=== PATIENT | female | born 1930 | race Two or more races ===

== ENCOUNTER 2020-09-08 12:37 | Inpatient (IN) | payer OTHER, MEDICAID ==
[~2020-09-08] VITALS: Ht 147.3 cm; Wt 61.2 kg
[2020-09-08 13:43] LABS: Basophils # (auto) 0 10 ^3/uL (0-0.2); Basophils % (auto) 0.4 % (0.0-2.0); Eosinophils # (auto) 0.1 10 ^3/uL (0-0.8); Hematocrit 38.6 % (36.0-46.0); Hemoglobin 12.9 g/dL (12.2-16.2); Lymphocytes # (auto) 1.1 10 ^3/uL (0.4-5.4); Lymphocytes % (auto) 11.6 % (10.0-50.0); Mean Corpuscular Hemoglobin 33.5 pg (28.0-32.0); Mean Corpuscular Hgb Conc. 33.5 g/dL (32.0-36.0); Mean Corpuscular Volume 99.8 fL (80.0-100.0); Monocytes # (auto) 0.6 10 ^3/uL (0-1.3); Monocytes % (auto) 6.1 % (0.0-12.0); Neutrophils # (auto) 7.8 10 ^3/uL (1.6-8.6); Neutrophils % (auto) 80.9 % (37.0-80.0); Platelet Count (auto) 418 10^3/uL (140-450); Red Blood Cells 3.87 10^6/uL (4.0-5.20); White Blood Cell 9.7 10^3/uL (4.4-10.8)
[2020-09-08 14:00] LABS: Albumin 3.6 g/dL (3.4-5.0); Chloride 109 mmol/L (98-107); Sodium 138 mmol/L (136-145)
[2020-09-08 14:07] LABS: Alanine Aminotransferase 48 U/L (13-56); Alkaline Phosphatase 82 U/L (45-117); Anion Gap 7 (5-15); Aspartate Aminotransferase 21 U/L (15-37); BUN/Creatinine Ratio 16.8; Bilirubin, Total 0.8 mg/dL (0.2-1.0); Blood Urea Nitrogen 18 mg/dL (7-18); Calcium 8.4 mg/dL (8.5-10.1); Carbon Dioxide 22 mmol/L (21-32); GFR African American 62 mL/min; GFR Non-African American 51 mL/min; Glucose 119 mg/dL (74-106); Total Protein 7.3 g/dL (6.4-8.2)
[2020-09-08 16:09] LABS: Urine Bacteria FEW /hpf (None Seen); Urine Blood Negative /uL (Negative); Urine Specific Gravity 1.005 (1.001-1.035); Urine WBC 1 /hpf (0 - 5)
[2020-09-08] MEDS ORDERED: cefTRIAXone 1GM/50ML D5W 50 ML IV ONE (17:15)
[2020-09-08] MEDS ORDERED: AZITHROMYCIN 500MG/ 250ML 250 ML IV ONE (17:15)
[2020-09-08] MEDS ORDERED: ASPirin 325 MG TAB PO ONE (17:30)
[2020-09-08] MEDS ORDERED: DEXTROSE (50%) 50ML SYRG IV PRN (19:15)
[2020-09-08] MEDS ORDERED: NITROGLYCERIN 0.4 MG SL TAB SL PRN (19:15)
[2020-09-08] MEDS ORDERED: MORPHINE SULF INJ 2 MG/ML SYRINGE 1ML IV PRN (19:15)
[2020-09-08] MEDS ORDERED: KETOROLAC TROMETH 30 MG/ML 1ML VIAL IV ONE (19:15)
[2020-09-08] MEDS ORDERED: ACETAMINOPHEN 500 MG TAB PO PRN (19:15)
[2020-09-08] MEDS ORDERED: HYDROcodone-ACET 5/325MG TAB PO PRN (19:15)
[2020-09-08] MEDS ORDERED: FUROSEMIDE 20 MG TAB PO ONE (19:15)
[2020-09-08] MEDS ORDERED: DOCUSATE SOD 100 MG CAP PO PRN (19:15)
[2020-09-08] MEDS: ACCU-CHEK COMFORT CURVE STRIP VI SCH (21:24)
[2020-09-08] MEDS: ATORVASTATIN 20 MG TAB PO SCH (21:33)
[2020-09-08] MEDS: METOPROLOL TARTRATE 25 MG TAB PO SCH (21:33)
[2020-09-08] MEDS: InsuLIN REG 1unit/0.01ml Soln (100units/ml) SC SCH (21:33)
[2020-09-09] MEDS: ONDANSETRON HCL 4 MG/2 ML VIAL IV PRN ×2 (03:38→22:15)
[2020-09-09] MEDS: MORPHINE SULF INJ 2 MG/ML SYRINGE 1ML IV PRN ×3 (03:38→17:11)
[2020-09-09] MEDS: InsuLIN REG 1unit/0.01ml Soln (100units/ml) SC SCH ×4 (07:00→22:00)
[2020-09-09] MEDS: ACCU-CHEK COMFORT CURVE STRIP VI SCH ×4 (07:00→22:00)
[2020-09-09 07:32] LABS: Cholesterol 110 mg/dL (< 200); HDL Cholesterol 42 mg/dL (40-59); LDL Cholesterol 62 mg/dL (< 100); Triglycerides 123 mg/dL (< 150)
[2020-09-09] MEDS: cefTRIAXone 1GM/50ML D5W 50 ML IV SCH (09:00)
[2020-09-09] MEDS: AZITHROMYCIN 500MG/ 250ML 250 ML IV SCH (10:00)
[2020-09-09] MEDS: FAMOTIDINE 20 MG TAB PO SCH (10:00)
[2020-09-09] MEDS: ASPirin-EC 81 mg tab PO SCH (10:00)
[2020-09-09] MEDS: METOPROLOL TARTRATE 25 MG TAB PO SCH (10:00)
[2020-09-09] MEDS ORDERED: APIX2.5T PO (13:19)
[2020-09-09] MEDS ORDERED: PRAV20TA3 PO (13:19)
[2020-09-09] MEDS ORDERED: AMLO-483 PO (13:19)
[2020-09-09] MEDS ORDERED: METO-158 PO (13:19)
[2020-09-09] MEDS ORDERED: METH10TA6 PO (13:19)
[2020-09-09] MEDS ORDERED: ASPI-498 PO (13:19)
[2020-09-09] MEDS ORDERED: OMEP-260 PO (13:19)
[2020-09-09] MEDS ORDERED: GABA100C9 PO (13:19)
[2020-09-09] MEDS ORDERED: HYDR500C PO (13:19)
[2020-09-09] MEDS ORDERED: LOSA-39 PO (13:19)
[2020-09-09] MEDS ORDERED: DICL1GEL50 TD (13:22)
[2020-09-09 14:30] LABS: Basophils # (auto) 0 10 ^3/uL (0-0.2); Basophils % (auto) 0.2 % (0.0-2.0); Eosinophils # (auto) 0.1 10 ^3/uL (0-0.8); Eosinophils % (auto) 0.7 % (0.0-7.0); Hematocrit 39.9 % (36.0-46.0); Hemoglobin 12.9 g/dL (12.2-16.2); Lymphocytes # (auto) 1.1 10 ^3/uL (0.4-5.4); Lymphocytes % (auto) 8.9 % (10.0-50.0); Mean Corpuscular Hemoglobin 32.7 pg (28.0-32.0); Mean Corpuscular Hgb Conc. 32.3 g/dL (32.0-36.0); Monocytes # (auto) 0.6 10 ^3/uL (0-1.3); Monocytes % (auto) 5.4 % (0.0-12.0); Neutrophils # (auto) 10.1 10 ^3/uL (1.6-8.6); Neutrophils % (auto) 84.8 % (37.0-80.0); Platelet Count (auto) 381 10^3/uL (140-450); Red Blood Cells 3.95 10^6/uL (4.0-5.20); Red Cell Distribution Width 14.4 % (11.8-14.3); White Blood Cell 11.9 10^3/uL (4.4-10.8)
[2020-09-09 14:52] LABS: BUN/Creatinine Ratio 17.5; Calcium 8.5 mg/dL (8.5-10.1); Magnesium 2.2 mg/dL (1.6-2.6); Potassium 4.3 mmol/L (3.5-5.1)
[2020-09-09] MEDS: LORazepam 2MG/ML-1ML VIAL IV PRN ×2 (15:29→15:31)
[2020-09-09 20:38] LABS: Cholesterol 97 mg/dL (< 200)
[2020-09-09 20:41] LABS: HDL Cholesterol 40 mg/dL (40-59); LDL Cholesterol 51 mg/dL (< 100); Triglycerides 107 mg/dL (< 150)
[2020-09-09 20:46] LABS: Folate (Folic Acid) 21.97 ng/mL (5.38-24)
[2020-09-09] MEDS: ATORVASTATIN 20 MG TAB PO SCH (22:00)
[2020-09-09] MEDS: APIXABAN 2.5 MG TAB PO SCH (22:00)
[2020-09-10] MEDS: MORPHINE SULF INJ 2 MG/ML SYRINGE 1ML IV PRN ×2 (00:28→05:00)
[2020-09-10] MEDS: METOPROLOL TARTRATE 25 MG TAB PO SCH ×3 (04:00→21:55)
[2020-09-10] MEDS: ACCU-CHEK COMFORT CURVE STRIP VI SCH ×4 (06:46→21:56)
[2020-09-10] MEDS: InsuLIN REG 1unit/0.01ml Soln (100units/ml) SC SCH ×4 (06:47→22:04)
[2020-09-10] MEDS: FAMOTIDINE 20 MG TAB PO SCH (08:16)
[2020-09-10] MEDS: APIXABAN 2.5 MG TAB PO SCH (08:16)
[2020-09-10] MEDS: cefTRIAXone 1GM/50ML D5W 50 ML IV SCH (08:16)
[2020-09-10] MEDS: ASPirin-EC 81 mg tab PO SCH (08:16)
[2020-09-10] MEDS: AZITHROMYCIN 500MG/ 250ML 250 ML IV SCH (08:16)
[2020-09-10] MEDS ORDERED: ADENOSINE 51 MG in GIVE UN-DILUTED 0 ML IV STA (08:21)
[2020-09-10 10:35] VITALS: BP 136/78
[2020-09-10] MEDS: ATORVASTATIN 20 MG TAB PO SCH (21:55)
[2020-09-11 06:45] LABS: Basophils # (auto) 0 10 ^3/uL (0-0.2); Basophils % (auto) 0.3 % (0.0-2.0); Eosinophils # (auto) 0.1 10 ^3/uL (0-0.8); Mean Corpuscular Hgb Conc. 33.1 g/dL (32.0-36.0); Monocytes # (auto) 0.8 10 ^3/uL (0-1.3)
[2020-09-11 06:48] LABS: Eosinophils % (auto) 0.9 % (0.0-7.0); Hematocrit 37.9 % (36.0-46.0); Hemoglobin 12.5 g/dL (12.2-16.2); Lymphocytes # (auto) 1.5 10 ^3/uL (0.4-5.4); Lymphocytes % (auto) 15.4 % (10.0-50.0); Mean Corpuscular Hemoglobin 33.3 pg (28.0-32.0); Mean Corpuscular Volume 100.7 fL (80.0-100.0); Monocytes % (auto) 8.5 % (0.0-12.0); Neutrophils # (auto) 7.3 10 ^3/uL (1.6-8.6); Neutrophils % (auto) 74.9 % (37.0-80.0); Nucleated Red Blood Cells % 0.1 %; Platelet Count (auto) 487 10^3/uL (140-450); Red Blood Cells 3.77 10^6/uL (4.0-5.20); Red Cell Distribution Width 14.4 % (11.8-14.3); White Blood Cell 9.7 10^3/uL (4.4-10.8)
[2020-09-11] MEDS: ACCU-CHEK COMFORT CURVE STRIP VI SCH ×3 (06:58→17:00)
[2020-09-11] MEDS: InsuLIN REG 1unit/0.01ml Soln (100units/ml) SC SCH ×3 (06:58→17:00)
[2020-09-11 06:59] LABS: Potassium 4.9 mmol/L (3.5-5.1)
[2020-09-11 07:06] LABS: BUN/Creatinine Ratio 22.7; Calcium 8.6 mg/dL (8.5-10.1)
[2020-09-11] MEDS ORDERED: LIDOCAINE VISCOUS 2% 15ML UD PO ONE (08:30)
[2020-09-11] MEDS ORDERED: fentaNYL CITRATE 100 MCG/2 ML VL IV ONE (08:30)
[2020-09-11] MEDS ORDERED: diphenhdrAMINE HCL 50 MG/1 ML VL IV ONE (08:30)
[2020-09-11] MEDS ORDERED: MIDAZOLAM HCL 1MG/1ML-2 ML VIAL IV ONE (08:30)
[2020-09-11 08:41] LABS: INR 1.14 (0.9-1.15); Partial Thromboplastin Time 29.3 sec (23.0-31.2)
[2020-09-11] MEDS: cefTRIAXone 1GM/50ML D5W 50 ML IV SCH (09:00)
[2020-09-11] MEDS: METOPROLOL TARTRATE 25 MG TAB PO SCH (10:00)
[2020-09-11] MEDS: FAMOTIDINE 20 MG TAB PO SCH (10:00)
[2020-09-11] MEDS: ASPirin-EC 81 mg tab PO SCH (10:00)
[2020-09-11] MEDS ORDERED: IODIXANOL 320MG/ML 100ML BTL IV ONE (10:14)
[2020-09-11] MEDS ORDERED: LIDOCAINE 2%HCL (LOCAL ANESTH.) INJ 20ML MDV ONE (10:14)
[2020-09-11] MEDS ORDERED: SODIUM CHL 0.9% 0 ML ONE (10:47)
[2020-09-11] MEDS ORDERED: ANGIOMAX 250 MG VIAL IV ONE (10:47)
[2020-09-11 12:45] VITALS: BP 152/79
[2020-09-11 13:00] VITALS: BP 150/68
[2020-09-11 16:30] VITALS: BP 116/49
[2020-09-11 17:00] VITALS: BP 116/49
[2020-09-11] MEDS ORDERED: DOXYCYCLINE 100 MG TAB/CAP PO SCH (22:00)
== END 2020-09-11 18:50 | disposition home or self-care (01) | DRG 64 ==
LOC: ER 12:37 → TELE 19:09 → TELE-CENTR 09-10 19:21
PROVIDERS: ADMIT Nurse Practitioner Acute Care; ATTEND Internal Medicine
PROC: 4A023N7 Measurement of Cardiac Sampling and Pressure, Left Heart, Percutaneous Approach (ICD-10-PCS; principal; 2020-09-11)
PROC: B2111ZZ Fluoroscopy of Multiple Coronary Arteries using Low Osmolar Contrast (ICD-10-PCS; 2020-09-11)
PROC: B246ZZ4 Ultrasonography of Right and Left Heart, Transesophageal (ICD-10-PCS; 2020-09-11)
DX: I63.511 Cerebral infarction due to unspecified occlusion or stenosis of right middle cerebral artery (principal); J18.9 Pneumonia, unspecified organism; I50.23 Acute on chronic systolic (congestive) heart failure; I48.20 Chronic atrial fibrillation, unspecified; I48.92 Unspecified atrial flutter; E78.5 Hyperlipidemia, unspecified; I25.10 Atherosclerotic heart disease of native coronary artery without angina pectoris; E11.9 Type 2 diabetes mellitus without complications; E07.9 Disorder of thyroid, unspecified; Z20.822 Contact with and (suspected) exposure to COVID-19; Z79.01 Long term (current) use of anticoagulants; Z79.899 Other long term (current) drug therapy; Z95.1 Presence of aortocoronary bypass graft; Z95.3 Presence of xenogenic heart valve; I11.0 Hypertensive heart disease with heart failure; I27.21 Secondary pulmonary arterial hypertension
CPT/HCPCS: 36415; 70450; 71045; 78452; 80048; 80053; 80061; 81001; 82043; 82607; 82746; 82962; 83036; 83605; 83735; 83880; 84439; 84443; 84484; 85025; 85379; 85610; 85730; 86141; 87040; 87426; 87804; 93005; 93017; 93306; 93312; 93886; 95819; 96365; 96368; 99152; 99153; G0378; J0153; J0696; J1815; J1885; J2250; J2405; Q9967

== ENCOUNTER 2021-01-22 09:40 | Day surgery (SDC) | payer OTHER, MEDICAID ==
[~2021-01-22] VITALS: Ht 147.3 cm; Wt 61.7 kg
[~2021-01-22 09:40] MED LIST: ACET-1304 PO; APIX2.5T PO; GABA100C9 PO; HYDR500C PO; LOSA-39 PO; METH10TA6 PO; METO-158 PO; OMEP-260 PO; PRAV20TA3 PO
[2021-01-22] MEDS ORDERED: fentaNYL CITRATE 100 MCG/2 ML VL IV ONE (10:15)
[2021-01-22] MEDS ORDERED: LIDOCAINE VISCOUS 2% 15ML UD PO ONE (10:15)
[2021-01-22] MEDS ORDERED: MIDAZOLAM HCL 1MG/1ML-2 ML VIAL IV ONE (10:15)
[2021-01-22] MEDS ORDERED: diphenhdrAMINE HCL 50 MG/1 ML VL IV ONE (10:15)
== END 2021-01-22 13:36 | disposition home or self-care (01) ==
LOC: CATH 09:40
PROVIDERS: ATTEND Internal Medicine
DX: I34.0 Nonrheumatic mitral (valve) insufficiency (principal); E78.5 Hyperlipidemia, unspecified; I25.810 Atherosclerosis of coronary artery bypass graft(s) without angina pectoris; Z20.822 Contact with and (suspected) exposure to COVID-19; Z98.890 Other specified postprocedural states; Z79.899 Other long term (current) drug therapy
CPT/HCPCS: 93318; U0003; 99152; J2250

== ENCOUNTER 2021-07-20 11:14 | Emergency (ER) | payer OTHER, MEDICAID ==
[~2021-07-20] VITALS: Ht 147.3 cm; Wt 56.4 kg
[2021-07-20 15:36] LABS: Potassium 4.5 mmol/L (3.5-5.1)
[2021-07-20 15:43] LABS: Albumin 4.1 g/dL (3.4-5.0); BUN/Creatinine Ratio 20.7; Bilirubin, Total 0.7 mg/dL (0.2-1.0); Calcium 8.7 mg/dL (8.5-10.1); Total Protein 8.2 g/dL (6.4-8.2)
[2021-07-20 17:09] VITALS: BP 136/73
== END 2021-07-20 17:12 | disposition home or self-care (01) ==
LOC: ER 11:14
DX: J20.9 Acute bronchitis, unspecified (principal); E11.9 Type 2 diabetes mellitus without complications; I10 Essential (primary) hypertension; E78.5 Hyperlipidemia, unspecified; Z86.73 Personal history of transient ischemic attack (TIA), and cerebral infarction without residual deficits; Z95.1 Presence of aortocoronary bypass graft; Z20.822 Contact with and (suspected) exposure to COVID-19
CPT/HCPCS: 36415; 71045; 80053; 84484; 93005